=== PATIENT | female | born 1970 | race Caucasian/White ===

== ENCOUNTER 2017-06-02 16:57 | Emergency (ER) | payer MEDICAID ==
[~2017-06-02] VITALS: Ht 162.6 cm; Wt 81.8 kg
[~2017-06-02 16:57] MED LIST: ALBU17AE27 IH; AMOX-429 PO; ATEN-189 PO; BENA20TA3 PO; INSLAN SQ; INSU100V3 SQ; METF1000 PO; VICOT PO
[2017-06-02 17:23] LABS: GLUCOSE,POINT OF CARE 456 MG/DL (70-110)
[2017-06-02] MEDS ORDERED: LISI-662 PO (17:27)
[2017-06-02] MEDS ORDERED: CLON.3 PO (17:27)
[2017-06-02] MEDS ORDERED: SODIUM CHLORIDE 0.9% 1,000 ML IV ONE (18:30)
[2017-06-02 18:51] VITALS: BP 150/90
[2017-06-02] MEDS ORDERED: INSULIN REGULAR, HUMAN 100 UNITS/ML SQ ONE (19:30)
[2017-06-02 19:42] LABS: GLUCOSE,POINT OF CARE 313 MG/DL (70-110)
== END 2017-06-02 19:44 | disposition home or self-care (01) ==
LOC: EMS 16:59
DX: S80.11XA Contusion of right lower leg, initial encounter (principal); E11.65 Type 2 diabetes mellitus with hyperglycemia; L30.8 Other specified dermatitis; I10 Essential (primary) hypertension; Z79.4 Long term (current) use of insulin; W57.XXXA Bitten or stung by nonvenomous insect and other nonvenomous arthropods, initial encounter; Y93.89 Activity, other specified; Y92.89 Other specified places as the place of occurrence of the external cause; Y99.8 Other external cause status
CPT/HCPCS: 82962; 96372; 99284; J1815; J7030

== ENCOUNTER 2017-06-04 14:03 | Emergency (ER) | payer MEDICAID ==
[~2017-06-04] VITALS: Ht 162.6 cm; Wt 84.1 kg
[~2017-06-04 14:03] MED LIST changes: -AMOX-429 PO; -ATEN-189 PO; -BENA20TA3 PO; +CLON.3 PO; +LISI-662 PO; -METF1000 PO
[2017-06-04 14:18] LABS: GLUCOSE,POINT OF CARE 297 MG/DL (70-110)
[2017-06-04 15:16] LABS: GLUCOSE,POINT OF CARE 250 MG/DL (70-110)
[2017-06-04 16:43] LABS: GLUCOSE,POINT OF CARE 292 MG/DL (70-110)
[2017-06-04] MEDS ORDERED: ONDANSETRON HCL 4 MG TABLET PO ONE (17:15)
[2017-06-04] MEDS ORDERED: IBUPROFEN 600 MG TABLET PO ONE (17:15)
[2017-06-04 17:26] VITALS: BP 150/90
[2017-06-04 17:36] LABS: BASOPHILS % (AUTO) 0.6 % (0.0-2.0); EOSINOPHILS % (AUTO) 2.4 % (1.0-6.0); HEMATOCRIT 40.7 % (36-46); HEMOGLOBIN 13.9 g/dL (12.0-16.0); LYMPHOCYTES # (AUTO) 2.5 K/uL (1.0-4.8); LYMPHOCYTES % (AUTO) 24.3 % (22.0-44.0); MEAN CORPUSCULAR HGB CONC 34.1 G/dL (31.0-37.0); MEAN CORPUSCULAR VOLUME 85 fL (80-100); MONOCYTES # (AUTO) 0.8 K/uL (0.1-1.0); MONOCYTES % (AUTO) 7.4 % (2.0-9.0); NEUTROPHILS # (AUTO) 6.7 K/uL (1.8-7.7); NEUTROPHILS % (AUTO) 65.3 % (40.0-70.0); PLATELET COUNT (AUTO) 242 K/uL (150-450); RED BLOOD CELL COUNT(AUTO) 4.78 MIL/uL (4.00-5.20); RED CELL DISTRIBUTION WIDTH 13.7 % (11.5-14.5); WHITE BLOOD COUNT (AUTO) 10.2 K/uL (4.5-11.0)
[2017-06-04 17:44] LABS: ANION GAP 10 mmol/L (8-16); CALCIUM, TOTAL 9.2 mg/dL (8.8-10.5); CARBON DIOXIDE 28 mmol/L (22-29); CHLORIDE 101 mmol/L (98-107); CREATININE 0.96 mg/dL (0.60-1.30); GLOMERULAR FILTR. RATE CALC > 60 mL/min (>60); POTASSIUM 3.6 mmol/L (3.5-5.1); SODIUM SERUM 139 mmol/L (136-145); UREA NITROGEN, BLOOD 20 mg/dL (7-18)
[2017-06-04 17:50] LABS: ALANINE AMINOTRANSFERASE 33 U/L (12-78); ALBUMIN 3.3 g/dL (3.4-5.0); ASPARTATE AMINOTRANSFERASE 18 U/L (15-37); BILIRUBIN,TOTAL 0.5 mg/dL (0.1-1.0); TOTAL PROTEIN, SERUM 6.7 g/dL (6.4-8.2)
== END 2017-06-04 18:14 | disposition home or self-care (01) ==
LOC: EMS 14:04
DX: E11.65 Type 2 diabetes mellitus with hyperglycemia (principal); G44.209 Tension-type headache, unspecified, not intractable; I10 Essential (primary) hypertension; Z79.4 Long term (current) use of insulin
CPT/HCPCS: 36415; 80053; 82962; 85025; 99284; Q0162

== ENCOUNTER 2019-01-08 14:16 | Emergency (ER) | payer MEDICAID ==
[~2019-01-08] VITALS: Ht 160 cm; Wt 73.2 kg
[~2019-01-08 14:16] MED LIST changes: -VICOT PO
[2019-01-08 14:39] VITALS: BP 157/105
[2019-01-08 14:44] LABS: GLUCOSE,POINT OF CARE 154 MG/DL (70-110)
== END 2019-01-08 16:40 | disposition left against medical advice (07) ==
LOC: EMS 14:17
DX: R06.02 Shortness of breath (principal); R42 Dizziness and giddiness; R51 Headache; Z53.21 Procedure and treatment not carried out due to patient leaving prior to being seen by health care provider

== ENCOUNTER 2020-07-04 08:42 | Emergency (ER) | payer MEDICAID ==
[~2020-07-04] VITALS: Ht 165.1 cm; Wt 77.3 kg
[~2020-07-04 08:42] MED LIST changes: -ALBU17AE27 IH; +AMOX1TAB16 PO; -CLON.3 PO; +CLON0.3T PO
[2020-07-04] MEDS ORDERED: LISI-662 PO (08:49)
[2020-07-04] MEDS ORDERED: METF-960 PO (08:49)
[2020-07-04] MEDS ORDERED: ONDANSETRON HCL 4 MG TABLET PO ONE (09:45)
[2020-07-04] MEDS ORDERED: ONDANSETRON HCL 4 MG/2 ML VIAL IVP ONE (09:45)
[2020-07-04] MEDS ORDERED: SODIUM CHLORIDE 0.9% 1,000 ML IV ONE (09:45)
[2020-07-04] MEDS ORDERED: INSULIN REGULAR, HUMAN 100 UNITS/ML IVP ONE (10:00)
[2020-07-04 10:08] LABS: BASOPHILS % (AUTO) 1.5 % (0.0-2.0); EOSINOPHILS % (AUTO) 4.6 % (1.0-6.0); HEMATOCRIT 46.8 % (36-46); HEMOGLOBIN 15.7 g/dL (12.0-16.0); LYMPHOCYTES # (AUTO) 1.9 K/uL (1.0-4.8); LYMPHOCYTES % (AUTO) 28.3 % (22.0-44.0); MEAN CORPUSCULAR HEMOGLOBIN 29.3 pg (26.0-34.0); MEAN CORPUSCULAR HGB CONC 33.6 G/dL (31.0-37.0); MEAN CORPUSCULAR VOLUME 87 fL (80-100); MONOCYTES # (AUTO) 0.5 K/uL (0.1-1.0); MONOCYTES % (AUTO) 7.7 % (2.0-9.0); NEUTROPHILS % (AUTO) 57.9 % (40.0-70.0); PLATELET COUNT (AUTO) 282 K/uL (150-450); RED BLOOD CELL COUNT(AUTO) 5.37 MIL/uL (4.00-5.20); RED CELL DISTRIBUTION WIDTH 13.3 % (11.5-14.5)
[2020-07-04 10:12] LABS: APPEARANCE,URINE CLEAR (CLEAR); BILIRUBIN,URINE NEGATIVE (NEGATIVE); GLUCOSE, URINE (UA) >=1000 mg/dL (NEGATIVE); KETONES,URINE NEGATIVE (NEGATIVE); LEUKOCYTE ESTERASE ,URINE NEGATIVE (NEGATIVE); NITRATE,URINE NEGATIVE (NEGATIVE); OCCULT BLOOD,URINE NEGATIVE (NEGATIVE); PROTEIN,URINE POS 1+ (NEGATIVE); UROBILINOGEN,URINE 0.2 mg/dL (<=1.0)
[2020-07-04 10:23] LABS: CREATININE 1.1 mg/dL (0.60-1.30); POTASSIUM 3.9 mmol/L (3.5-5.1)
[2020-07-04 10:29] LABS: ALBUMIN 3.9 g/dL (3.4-5.0); BILIRUBIN,TOTAL 0.5 mg/dL (0.1-1.0); TOTAL PROTEIN, SERUM 8.5 g/dL (6.4-8.2)
[2020-07-04 10:47] LABS: BACTERIA,URINE None Seen /HPF (None Seen); RBC,URINE None Seen /HPF (0-2); SQUAMOUS EPITHELIAL CELL,UR Many /LPF (None Seen); WBC,URINE None Seen /HPF (0-5)
[2020-07-04] MEDS ORDERED: IOVERSOL 350 MG/ML 100 ML VIAL ONE (10:50)
[2020-07-04] MEDS ORDERED: SODIUM CHLORIDE 0.9% 100 ML ONE (10:50)
[2020-07-04 14:00] VITALS: BP 196/123
[2020-07-04] MEDS ORDERED: CloNIDine HCL 0.1 MG TABLET PO ONE (14:15)
== END 2020-07-04 14:15 | disposition home or self-care (01) ==
LOC: EMS 08:52
DX: K52.9 Noninfective gastroenteritis and colitis, unspecified (principal); E11.65 Type 2 diabetes mellitus with hyperglycemia; I10 Essential (primary) hypertension; Z79.84 Long term (current) use of oral hypoglycemic drugs
CPT/HCPCS: 36415; 74177; 80053; 81001; 83690; 84484; 85025; 93005; 96361; 96374; 96375; 99285; J1815; J2405; J7030; J7050; Q0162; Q9967

== ENCOUNTER 2020-08-24 07:28 | Emergency (ER) | payer MEDICAID ==
[~2020-08-24] VITALS: Ht 160 cm; Wt 77.3 kg
[~2020-08-24 07:28] MED LIST changes: -AMOX1TAB16 PO; -CLON0.3T PO; -INSLAN SQ; -INSU100V3 SQ; +METF-960 PO
[2020-08-24 08:21] LABS: COVID AG,FIA SOURCE NASOPHARYNGEAL
[2020-08-24 08:21] LABS: BASOPHILS % (AUTO) 0.7 % (0.0-2.0); EOSINOPHILS % (AUTO) 0.1 % (1.0-6.0); HEMATOCRIT 36.5 % (36-46); HEMOGLOBIN 12.3 g/dL (12.0-16.0); LYMPHOCYTES # (AUTO) 0.9 K/uL (1.0-4.8); MEAN CORPUSCULAR HEMOGLOBIN 29.3 pg (26.0-34.0); MEAN CORPUSCULAR HGB CONC 33.7 G/dL (31.0-37.0); MEAN CORPUSCULAR VOLUME 87 fL (80-100); MONOCYTES # (AUTO) 1.1 K/uL (0.1-1.0); MONOCYTES % (AUTO) 17.7 % (2.0-9.0); NEUTROPHILS % (AUTO) 66.5 % (40.0-70.0); PLATELET COUNT (AUTO) 189 K/uL (150-450); RED CELL DISTRIBUTION WIDTH 13.8 % (11.5-14.5)
[2020-08-24] MEDS ORDERED: SODIUM CHLORIDE 0.9% 1,000 ML IV ONE ×2 (08:30→11:00)
[2020-08-24] MEDS ORDERED: ONDANSETRON HCL 4 MG/2 ML VIAL IVP ONE (08:30)
[2020-08-24] MEDS ORDERED: MORPHINE SULFATE 2 MG/ML SYRINGE IVP ONE (08:30)
[2020-08-24 08:35] LABS: CALCIUM, TOTAL 8.2 mg/dL (8.8-10.5); CREATININE 1.49 mg/dL (0.60-1.30); POTASSIUM 3.2 mmol/L (3.5-5.1)
[2020-08-24 08:56] LABS: INFLUENZA TYPE A NEGATIVE FOR TYPE A (NEGATIVE); INFLUENZA TYPE B NEGATIVE FOR TYPE B (NEGATIVE)
[2020-08-24 09:01] LABS: ALBUMIN 2.6 g/dL (3.4-5.0); BILIRUBIN,TOTAL 0.5 mg/dL (0.1-1.0); TOTAL PROTEIN, SERUM 6.2 g/dL (6.4-8.2)
[2020-08-24] MEDS ORDERED: SODIUM CHLORIDE 0.9% 100 ML ONE (09:36)
[2020-08-24] MEDS ORDERED: IOVERSOL 350 MG/ML 100 ML VIAL ONE (09:36)
[2020-08-24] MEDS ORDERED: POTASSIUM CHLORIDE 20 MEQ ER TABLET PO ONE (10:30)
[2020-08-24] MEDS ORDERED: CIPROFLOXACIN HCL 250 MG TABLET PO ONE (11:00)
[2020-08-24] MEDS ORDERED: MetroNIDAZOLE 250 MG TABLET PO ONE (11:00)
[2020-08-24 11:19] LABS: APPEARANCE,URINE CLEAR (CLEAR); BILIRUBIN,URINE NEGATIVE (NEGATIVE); GLUCOSE, URINE (UA) NEGATIVE (NEGATIVE); KETONES,URINE NEGATIVE (NEGATIVE); LEUKOCYTE ESTERASE ,URINE NEGATIVE (NEGATIVE); NITRATE,URINE NEGATIVE (NEGATIVE); OCCULT BLOOD,URINE NEGATIVE (NEGATIVE); PROTEIN,URINE POS 1+ (NEGATIVE); UROBILINOGEN,URINE 0.2 mg/dL (<=1.0)
[2020-08-24 11:36] LABS: BACTERIA,URINE None Seen /HPF (None Seen); RBC,URINE None Seen /HPF (0-2); WBC,URINE None Seen /HPF (0-5)
[2020-08-24 11:37] LABS: SQUAMOUS EPITHELIAL CELL,UR Moderate /LPF (None Seen)
[2020-08-24 12:00] VITALS: BP 126/75
[2020-08-24] MEDS ORDERED: KETOROLAC TROMETHAMINE 30 MG/ML VIAL IVP ONE (12:00)
[2020-08-27 18:06] LABS: OVA AND PARASITES EXAM Final report
== END 2020-08-24 12:37 | disposition home or self-care (01) ==
LOC: EMS 07:28
DX: K52.9 Noninfective gastroenteritis and colitis, unspecified (principal); E87.6 Hypokalemia; I10 Essential (primary) hypertension; E11.9 Type 2 diabetes mellitus without complications; Z79.84 Long term (current) use of oral hypoglycemic drugs; Z20.828 Contact with and (suspected) exposure to other viral communicable diseases
CPT/HCPCS: 36415; 74177; 80053; 81001; 82550; 82962; 83690; 85025; 87045; 87177; 87426; 87804; 96361; 96374; 96375; 99285; J1885; J2270; J2405; J7030; J7050; Q9967